=== PATIENT | female | born 1955 | race Caucasian/White ===

== ENCOUNTER 2023-10-03 09:41 | Day surgery (SDC) | payer MEDICARE, OTHER, SELFPAY ==
[2023-10-03 09:48] VITALS: BP 151/71; PULSE 60; RESP 16; TEMP 36.3; O2SAT 100
--- NOTE | 2023-10-03 10:20 | W.ANESPRE ---
General Info Date of Service Date Performed: 10/03/23 Height: 5 ft 2 in Weight: 60.781 kg Body Mass Index (BMI): 24.5 Surgical Procedure: Operation Date: 10/03/23 11:25 Proposed Procedure Side Surgeon p Cataract Extraction with IOL Implant Right Marvin Felix MD Meds Allergies and Home Medications Allergies Allergy/AdvReac Type Severity Reaction Status Date / Time amoxicillin Allergy Intermediate Skin Rash Unverified 10/03/23 10:04 azithromycin Allergy Intermediate Hives Unverified 10/03/23 10:04 iodine Allergy Intermediate Skin Rash Unverified 10/03/23 10:04 milk Allergy Intermediate Hives Unverified 10/03/23 10:04 oxycodone [From Percocet] Allergy Intermediate Skin Rash Unverified 10/03/23 10:04 Penicillins Allergy Intermediate Hives Unverified 10/03/23 10:04 ceftriaxone Allergy Mild Skin Rash Unverified 10/03/23 10:04 ciprofloxacin AdvReac Intermediate Other (See Unverified 10/03/23 10:04 Comment) doxycycline AdvReac Intermediate Skin Rash Unverified 10/03/23 10:04 Dizajph-FTB-LkK Reductase AdvReac Intermediate Cramps Unverified 10/03/23 10:04 Inhibitor mycins Allergy Intermediate Sores Uncoded 10/03/23 10:04 Home Medication Medication Instructions Recorded albuterol sulfate 90 mcg/actuation 2 inh inhalation Q4H 09/30/23 breath activated powder inhaler cholecalciferol (vitamin D3) 50 50 mcg PO DAILY 09/30/23 mcg (2,000 unit) capsule (D3-2000) gabapentin 100 mg capsule 500 mg PO TID 09/30/23 gemfibrozil 600 mg tablet 600 mg PO BID 09/30/23 hydrochlorothiazide 12.5 mg capsule 12.5 mg PO DIRECTED 09/30/23 levothyroxine 50 mcg tablet 50 mcg PO DAILY 09/30/23 (Levo-T) xsojcfgmrtgt-obvihbwf-pyxzuw 1 tab PO DAILY 09/30/23 tablet (A Thru Z High Potency tablet) peg 3350-electrolytes 236 240 ml PO Q10M 09/30/23 gram-22.74 gram-6.74 gram-5.86 gram solution (GaviLyte-G) tramadol 100 mg tablet 100 mg PO QHS 09/30/23 valacyclovir 1 gram tablet 1,000 mg PO BID 09/30/23 calcium carbonate 600 mg calcium 600 mg PO DAILY 10/01/23 (1,500 mg) tablet (Calcium) warfarin 5 mg tablet 5 mg PO DAILY 10/01/23 Current Visit Medications: Current Medications Generic Name Dose Route Start Last Admin Trade Name Xiangq PRN Reason Stop Dose Admin Balanced Salt Solution 500 ml 10/03/23 06:00 Balanced Salt Soln.-Plus 500 Ml Bag OP 11/02/23 05:59 DIRECTED CALIN Miscellaneous Medication 0 ml 10/03/23 06:00 Prednisolone 1%, Moxifloxacin 0.5%, Bromfenac 0.09% 5ml Btl OD 11/02/23 05:59 DIRECTED CALIN Miscellaneous Medication 0 ml 10/03/23 06:00 10/03/23 10:15 Tropicam./Phenyleph. (1/2.5%) 10 Ml Btl OD 11/02/23 05:59 1 drp DIRECTED CALIN Administration Tetracaine HCl 0 ml 10/03/23 06:00 Tetracaine 0.5% 4 Ml Btl OD 11/02/23 05:59 DIRECTED CALIN PFSH Active Problems Active Problems: Problem Status Onset Code Cortical age-related cataract, right eye H25.011 Nuclear age-related cataract, right eye H25.11 Medical History Medical History Hx of ventricular fibrillation Pt was asked various times if she was sure if this is what she had she stated yes states she does not have any trouble with it at all. She denies a defibrillator. Pt was instructed to clarify with PCP if she infact had vfib at one point in time. Pt was informed this is more serious arrthymia she should investigate as it is not indicated anywhere in her preoperative H&P Otitis externa Hx of deep venous thrombosis Chronic pain disorder Controlled substance agreement signed Lymphadenitis Hypothyroidism Neuralgia GERD (gastroesophageal reflux disease) Factor 5 Leiden mutation, heterozygous Pulmonary hypertension Osteoporosis Mitral valve regurgitation H/O cardiovascular stress test Osteoarthritis Thyroid nodule HSV (herpes simplex virus) infection Cervical lymphadenopathy Dyspepsia Surgical History Surgical History Hx of foot surgery Hx of hysterectomy 1993 Hx of elbow surgery Hx laparoscopic cholecystectomy Hx of colonoscopy History of esophagogastroduodenoscopy (EGD) History of lumbar surgery Status post phlebectomy Hx of vascular surgery May-Thurner procedure with stent Tobacco Smoking/Tobacco Use Status: Never Alcohol Alcohol Intake: former Substance Use Substance use: Never Substance use type: does not use Vital Signs and Lab Results Vital Signs Most Recent Vital Signs in EMR: Most Recent Vital Signs Temp Pulse Resp BP Pulse Ox 36.3 C L 60 16 151/71 H 100 10/03/23 09:48 10/03/23 09:48 10/03/23 09:48 10/03/23 09:48 10/03/23 09:48 Lab Results Blood Type / Crossmatch: No Data to Display Complete Blood Count: No Data to Display Complete Metabolic Panel: No Data to Display Liver Function Panel: No Data to Display Coagulation Panel: No Data to Display Cardiac Panel: No Data to Display Arterial Blood Gas: No Data to Display Venous Blood Gas: No Data to Display Pancreas Panel: No Data to Display Thyroid Panel: No Data to Display Infectious Disease: No Data to Display Blood Cultures: No Data to Display Toxicology Panel: No Data to Display Anesthesia Assessment and Plan Anesthesia History Personal History: No History of Anesthesia Complications Family History: No Family History of Anesthesia Complications Exercise Tolerance Exercise Tolerance: Metabolic Equivalents>4 Pertinent Negatives Pertinent Negatives: No Symptoms of GERD Cardiac & Pulmonary Exam Cardiac Exam: Normal S1/S2 Heart Sounds Pulmonary Exam: Clear Bilateral Breath Sounds Implantable Cardiac Device Does patient have a Pacemaker or an ICD?: No Airway Exam Known Difficult Airway: No Mallampati Class: 1 Mouth Opening: Normal (> 3cm) Thyromental Distance: Greater than 3 cm Neck Range of Motion: Full ROM Neck Circumference: Normal Teeth Condition: Normal Dentition ASA Classification ASA Score: ASA 3 Emergency Case?: No NPO Status NPO Status: NPO Clears >2 hours, Solids >8 hours Anesthesia Plan Resuscitation Status: Full Code Anesthesia Technique: MAC Anesthesia Airway Planned: Natural Airway Monitors Used: Standard Monitors
[2023-10-03 10:50] VITALS: BMI 24.5
[2023-10-03] MEDS: Tetracaine 0.5% 4 ML BTL OD (11:02)
[2023-10-03] MEDS: Balanced Salt Soln.-PLUS 500 ML BAG OP (11:10)
[2023-10-03] MEDS: Duovisc Viscoelastic System EACH 1 EACH (11:12)
[2023-10-03] MEDS: Lidocaine 1% Pres-Free 5 ML VIAL (11:12)
[2023-10-03] MEDS: Povidone-Iodine Ophth 30 ML BTL (11:13)
[2023-10-03 11:27] VITALS: BP 129/63; PULSE 52; RESP 16; TEMP 36.5; O2SAT 99
--- NOTE | 2023-10-03 11:31 | W.PM.DSUDISC ---
Date of service: 10/03/23 Time of Service: 11:31 Discharge Plan Disposition Patient Disposition: Home Discharge Details Attending Provider: Marvin Felix Primary Care Provider: Galina Vanegas Home Meds and New Rx's Prescriptions: No Action cholecalciferol (vitamin D3) [D3-2000] 50 mcg (2,000 unit) capsule 50 mcg PO DAILY A Thru Z High Potency Tablet 1 tab PO DAILY albuterol sulfate 90 mcg/actuation aerosol powdr breath activated 2 inh inhalation Q4H gemfibrozil 600 mg tablet 600 mg PO BID hydrochlorothiazide 12.5 mg capsule 12.5 mg PO DIRECTED levothyroxine [Levo-T] 50 mcg tablet 50 mcg PO DAILY tramadol 100 mg tablet 100 mg PO QHS valacyclovir 1 gram tablet 1,000 mg PO BID peg 3350-electrolytes [GaviLyte-G] 236-22.74-6.74 -5.86 gram recon soln 240 ml PO Q10M Rx Instructions: until fecal effluent is clear gabapentin 100 mg capsule 500 mg PO TID calcium carbonate [Calcium 600] 600 mg calcium (1,500 mg) tablet 600 mg PO DAILY warfarin 5 mg tablet 5 mg PO DAILY Discharge Instructions Stand Alone Forms: [facility] Leonela Mcgowan ([facility]) Discharge Orders Discharge Orders: Discharge Order (Routine); Ordered 10/03/23 Ordered By: Marivn Felix DS: Diagnosis Discharge Diagnosis (1) Cortical age-related cataract, right eye: Status: Resolved (2) Nuclear age-related cataract, right eye: Status: Resolved
--- NOTE | 2023-10-03 11:31 | W.PM.OP ---
Date of service: 10/03/23 Time of Service: 11:31 Operative Note Operative Note DATE OF PROCEDURE: 10/03/23 PRE-OP DIAGNOSIS: Nuclear/cortical cataract, right eye POST-OP DIAGNOSIS: same PROCEDURE: Cataract extraction using phacoemulsification with intraocular lens implant, right eye SURGEON: Marvin Felix ANESTHESIA TYPE: Local By Surgeon and MAC Refer to Anesthesia Record ESTIMATED BLOOD LOSS: 0 PATHOLOGY: none sent COMPLICATIONS: None Patient was transported to: same day Patient's condition: stable Implants: Song Clareon [id number] Indications: Progressive decreased vision due to cataract, right eye Procedure Description: CATARACT SURGERY OPERATIVE REPORT PREOPERATIVE DIAGNOSIS: Nuclear/cortical cataract, right eye POSTOPERATIVE DIAGNOSIS: Same OPERATION: Cataract extraction using phacoemulsification with posterior chamber intraocular lens implant, right eye. IOL: IOL Animal Assisted Therapist/Model: Song Clareon [id number] IOL Power: + 22.0 diopters IOL Serial Number: [id number] Optic Diameter: 6.0mm Haptic/Overall Diameter: 13.0mm PHACO INFO: Song SpreadShouturion Vision System with OZil and Active Fluidics Cumulative Dispersed Energy (CDE): 4.82 seconds SURGEON: Marvin Felix MD, JOSE ALBERTO ANESTHESIA: Monitored Anesthesia Care (MAC), with local sub-tenon's anesthetic infiltration COMPLICATIONS: None SPECIMENS: None INDICATIONS FOR PROCEDURE: The patient is a 68-year-old lady with history of diminished visual acuity in her right eye secondary to the development of nuclear/cortical cataract. She is significantly symptomatic that she desires cataract surgery and attempt to improve and maximize her vision. The option of cataract surgery was offered to the patient and she wished to proceed. See office notes for detailed information. PROCEDURE: The correct surgical eye was identified and marked as the right eye and the pupil was dilated in the preoperative area using mydriatics and cycloplegics. The dilated pupil size was 7.0 mm. Oral sedation was administered in the form of an Imprimis MKO Melt (midazolam 3mg/ketamine 25mg/ondansetron 2mg). The patient elected to proceed without oral sedation. The patient was brought to the operating room where cardiopulmonary monitoring was instituted and surgical time-out was performed, confirming the correct operative eye and IOL power. Topical anesthesia was administered and ophthalmic povidone-iodine 5% was instilled into the conjunctival fornices. The macarena-ocular area was prepped with Betadine 10% solution and draped in the usual sterile fashion for intraocular surgery, including an aperture drape. A Tegaderm transparent film dressing was cut in half and used to cover the lashes and lid margins. Care was taken to sequester the lashes and lid margins under the Tegaderm dressing. A lid speculum was placed between the lids of the operative eye and the Jeremiah-Janine operating microscope was maneuvered into position. Tosha scissors were then used to make a conjunctival buttonhole approximately 6mm posterior to the limbus in the inferonasal quadrant. Blunt dissection was carried out to expose bare sclera, and a blunt-tipped sub-tenon?s anesthesia cannula was introduced and passed posteriorly along the globe where non-preserved plain lidocaine was injected into posterior sub-Tenon?s space. A sideport knife was used to make a paracentesis port. Intraocular phenylephrine/lidocaine was injected into the anterior chamber. The anterior chamber was then filled with viscoelastic. A keratome knife was used to construct a two--plane clear corneal tunnel extending 2.0mm into clear cornea. A flap was raised on the anterior capsule and capsulorhexis forceps were used to complete a continuous curvilinear capsulorhexis of 5.5 mm. Balanced salt solution was then used to perform cortical cleaving hydrodissection and nuclear hydrodelineation until the lens could be freely rotated within the capsular bag. The lens nucleus was then disassembled and removed within the capsular bag and iris plane using phacoemulsification. Residual cortical material was removed using the I/A handpiece. The posterior capsule was carefully polished to remove as much residual lens epithelial cells as safely possible. The capsular bag was then inflated and the anterior chamber deepened with cohesive viscoelastic. The lens implant described above was inserted into the capsular bag using the Song Autonome Injector. A Kuglen hook was used to dial the IOL into position. Residual viscoelastic was then removed first from posterior to the IOL, then from the anterior chamber using the I/A handpiece. The lens implant was noted to center nicely within the capsular bag. The incisions were stromally hydrated, and the anterior chamber was reformed using BSS. Then 0.5cc of moxifloxacin 1.0mg/ml were injected into the capsular bag and anterior chamber. The incisions were checked with a Weck spear and found to be secure. Several drops of ophthalmic povidone-iodine 5% were then applied to the eye followed by two drops of combination steroid/NSAID/antibiotic solution. The drapes were removed and a clear plastic protective eye shield was placed over the eye. The patient was then returned to Same Day Surgery in stable condition.
--- NOTE | 2023-10-03 11:42 | W.ANESPOSTOP ---
Postoperative Evaluation Date, Time and Location Date Performed: 10/03/23 Time Performed: 11:42 Patient Location: Day Surgery Unit Vital Signs Most Recent Imported Vital Signs: Most Recent Vital Signs Temp Pulse Resp BP Pulse Ox 36.5 C 52 L 16 129/63 99 10/03/23 11:27 10/03/23 11:27 10/03/23 11:27 10/03/23 11:27 10/03/23 11:27 Pain Score Most Recent Pain Score: Most Recent Pain Score Pain Level 0 10/03/23 11:27 Assessment Mental Status: Awake (Alert & Oriented to Patient Baseline) Airway and Respiratory Function: Patent airway with normal (patient baseline) respiratory exam Cardiovascular Function: Hemodynamically Stable Hydration Status: Adequately Hydrated Nausea & Vomiting: No Nausea or Vomiting Pain: Pt. Denies Any Pain Peripheral Nerve Block: Patient did not receive a nerve block
[2023-10-03 11:52] VITALS: BP 110/67; PULSE 51; RESP 18; TEMP 36.6; O2SAT 96
== END 2023-10-03 12:02 | disposition home or self-care (01) ==
LOC: SUR 09:42
PROVIDERS: PCP Family Medicine; Visit Provider Ophthalmology
PROC: (CPT 66984; principal; 2023-10-03 11:15)
DX: H25.011 Cortical age-related cataract, right eye (principal); H25.11 Age-related nuclear cataract, right eye; K21.9 Gastro-esophageal reflux disease without esophagitis
CPT/HCPCS: 66984; 00123; V2632; J2003

== ENCOUNTER 2023-10-17 11:14 | Day surgery (SDC) | payer MEDICARE, OTHER, SELFPAY ==
[2023-10-17 11:23] VITALS: BP 153/71; PULSE 53; RESP 14; TEMP 36; O2SAT 99
--- NOTE | 2023-10-17 12:41 | W.ANESPRE ---
General Info Date of Service Date Performed: 10/17/23 Height: 5 ft 2 in Weight: 61.3 kg Body Mass Index (BMI): 24.7 Surgical Procedure: Operation Date: 10/17/23 12:55 Proposed Procedure Side Surgeon p Cataract Extraction with IOL Implant Left Marvin Felix MD Meds Allergies and Home Medications Allergies Allergy/AdvReac Type Severity Reaction Status Date / Time amoxicillin Allergy Intermediate Skin Rash Verified 10/17/23 11:39 azithromycin Allergy Intermediate Hives Verified 10/17/23 11:39 iodine Allergy Intermediate Skin Rash Verified 10/17/23 11:39 milk Allergy Intermediate Hives Verified 10/17/23 11:39 oxycodone [From Percocet] Allergy Intermediate Skin Rash Verified 10/17/23 11:39 Penicillins Allergy Intermediate Hives Verified 10/17/23 11:39 ceftriaxone Allergy Mild Skin Rash Verified 10/17/23 11:39 ciprofloxacin AdvReac Intermediate Other (See Verified 10/17/23 11:39 Comment) doxycycline AdvReac Intermediate Skin Rash Verified 10/17/23 11:39 Nehmvue-XHH-IuV Reductase AdvReac Intermediate Cramps Verified 10/17/23 11:39 Inhibitor mycins Allergy Intermediate Sores Uncoded 10/17/23 11:39 Home Medication Medication Instructions Recorded albuterol sulfate 90 mcg/actuation 2 inh inhalation Q4H 09/30/23 breath activated powder inhaler cholecalciferol (vitamin D3) 50 50 mcg PO DAILY 09/30/23 mcg (2,000 unit) capsule (D3-2000) gabapentin 100 mg capsule 500 mg PO TID 09/30/23 gemfibrozil 600 mg tablet 600 mg PO BID 09/30/23 hydrochlorothiazide 12.5 mg capsule 12.5 mg PO DIRECTED 09/30/23 levothyroxine 50 mcg tablet 50 mcg PO DAILY 09/30/23 (Levo-T) qyxlqzioouas-sdscprfw-iqtmin 1 tab PO DAILY 09/30/23 tablet (A Thru Z High Potency tablet) tramadol 100 mg tablet 100 mg PO QHS 09/30/23 valacyclovir 1 gram tablet 1,000 mg PO BID PRN 09/30/23 calcium carbonate 600 mg calcium 600 mg PO DAILY 10/01/23 (1,500 mg) tablet (Calcium) warfarin 5 mg tablet 5 mg PO DAILY 10/01/23 Current Visit Medications: Current Medications Generic Name Dose Route Start Last Admin Trade Name Freq PRN Reason Stop Dose Admin Acetaminophen 1,000 mg 10/17/23 06:00 Acetaminophen 500 Mg Tab PO 11/16/23 05:59 Q4H PRN PRN Balanced Salt Solution 500 ml 10/17/23 06:00 Balanced Salt Soln.-Plus 500 Ml Bag OP 11/16/23 05:59 DIRECTED CALIN Miscellaneous Medication 0 ml 10/17/23 06:00 Prednisolone 1%, Moxifloxacin 0.5%, Bromfenac 0.09% 5ml Btl OS 11/16/23 05:59 DIRECTED CALIN Miscellaneous Medication 0 ml 10/17/23 06:00 10/17/23 11:52 Tropicam./Phenyleph. (1/2.5%) 10 Ml Btl OS 11/16/23 05:59 1 drp DIRECTED CALIN Administration Tetracaine HCl 0 ml 10/17/23 06:00 Tetracaine 0.5% 4 Ml Btl OS 11/16/23 05:59 DIRECTED CALIN PFSH Active Problems Active Problems: Problem Status Onset Code Cortical age-related cataract, left eye H25.012 Nuclear age-related cataract, left eye H25.12 Cortical age-related cataract, right eye H25.011 Nuclear age-related cataract, right eye H25.11 Medical History Medical History Hx of ventricular fibrillation Pt was asked various times if she was sure if this is what she had she stated yes states she does not have any trouble with it at all. She denies a defibrillator. Pt was instructed to clarify with PCP if she infact had vfib at one point in time. Pt was informed this is more serious arrthymia she should investigate as it is not indicated anywhere in her preoperative H&P Otitis externa Hx of deep venous thrombosis Chronic pain disorder Controlled substance agreement signed Lymphadenitis Hypothyroidism Neuralgia GERD (gastroesophageal reflux disease) Factor 5 Leiden mutation, heterozygous Pulmonary hypertension Osteoporosis Mitral valve regurgitation H/O cardiovascular stress test Osteoarthritis Thyroid nodule HSV (herpes simplex virus) infection Cervical lymphadenopathy Dyspepsia Surgical History Surgical History Hx of foot surgery Hx of hysterectomy 1993 Hx of elbow surgery Hx laparoscopic cholecystectomy Hx of colonoscopy History of esophagogastroduodenoscopy (EGD) History of lumbar surgery Status post phlebectomy Hx of vascular surgery May-Thurner procedure with stent Tobacco Smoking/Tobacco Use Status: Never Alcohol Alcohol Intake: former Substance Use Substance use: Never Substance use type: does not use Vital Signs and Lab Results Vital Signs Most Recent Vital Signs in EMR: Most Recent Vital Signs Temp Pulse Resp BP Pulse Ox 36 C L 53 L 14 153/71 H 99 10/17/23 11:23 10/17/23 11:23 10/17/23 11:23 10/17/23 11:23 10/17/23 11:23 Lab Results Blood Type / Crossmatch: No Data to Display Complete Blood Count: No Data to Display Complete Metabolic Panel: No Data to Display Liver Function Panel: No Data to Display Coagulation Panel: No Data to Display Cardiac Panel: No Data to Display Arterial Blood Gas: No Data to Display Venous Blood Gas: No Data to Display Pancreas Panel: No Data to Display Thyroid Panel: No Data to Display Infectious Disease: No Data to Display Blood Cultures: No Data to Display Toxicology Panel: No Data to Display Anesthesia Assessment and Plan Anesthesia History Personal History: No History of Anesthesia Complications Family History: No Family History of Anesthesia Complications Exercise Tolerance Exercise Tolerance: Metabolic Equivalents>4 Pertinent Negatives Pertinent Negatives: No Symptoms of GERD Cardiac & Pulmonary Exam Cardiac Exam: Normal S1/S2 Heart Sounds Pulmonary Exam: Clear Bilateral Breath Sounds Implantable Cardiac Device Does patient have a Pacemaker or an ICD?: No Airway Exam Known Difficult Airway: No Mallampati Class: 1 Mouth Opening: Normal (> 3cm) Thyromental Distance: Greater than 3 cm Neck Range of Motion: Full ROM Neck Circumference: Normal Teeth Condition: Normal Dentition ASA Classification ASA Score: ASA 3 Emergency Case?: No NPO Status NPO Status: NPO Clears >2 hours, Solids >8 hours Anesthesia Plan Resuscitation Status: Full Code Anesthesia Technique: MAC Anesthesia Airway Planned: Natural Airway Monitors Used: Standard Monitors Preoperative Comments:: Wants. Mko as before
[2023-10-17 12:47] VITALS: BMI 24.7
--- NOTE | 2023-10-17 13:16 | W.ANESPRE ---
General Info Date of Service Date Performed: 10/17/23 Height: 5 ft 2 in Weight: 61.3 kg Body Mass Index (BMI): 24.7 Surgical Procedure: Operation Date: 10/17/23 12:55 Proposed Procedure Side Surgeon p Cataract Extraction with IOL Implant Left Marvin Felix MD Pre-Op Diagnosis Post-Op Diagnosis LEFT CATARACT LEFT CATARACT WITH IOL Meds Allergies and Home Medications Allergies Allergy/AdvReac Type Severity Reaction Status Date / Time amoxicillin Allergy Intermediate Skin Rash Verified 10/17/23 11:39 azithromycin Allergy Intermediate Hives Verified 10/17/23 11:39 iodine Allergy Intermediate Skin Rash Verified 10/17/23 11:39 milk Allergy Intermediate Hives Verified 10/17/23 11:39 oxycodone [From Percocet] Allergy Intermediate Skin Rash Verified 10/17/23 11:39 Penicillins Allergy Intermediate Hives Verified 10/17/23 11:39 ceftriaxone Allergy Mild Skin Rash Verified 10/17/23 11:39 ciprofloxacin AdvReac Intermediate Other (See Verified 10/17/23 11:39 Comment) doxycycline AdvReac Intermediate Skin Rash Verified 10/17/23 11:39 Faromho-JQB-VlK Reductase AdvReac Intermediate Cramps Verified 10/17/23 11:39 Inhibitor mycins Allergy Intermediate Sores Uncoded 10/17/23 11:39 Home Medication Medication Instructions Recorded albuterol sulfate 90 mcg/actuation 2 inh inhalation Q4H 09/30/23 breath activated powder inhaler cholecalciferol (vitamin D3) 50 50 mcg PO DAILY 09/30/23 mcg (2,000 unit) capsule (D3-2000) gabapentin 100 mg capsule 500 mg PO TID 09/30/23 gemfibrozil 600 mg tablet 600 mg PO BID 09/30/23 hydrochlorothiazide 12.5 mg capsule 12.5 mg PO DIRECTED 09/30/23 levothyroxine 50 mcg tablet 50 mcg PO DAILY 09/30/23 (Levo-T) hictjxemgije-htbirjxs-fmdqdz 1 tab PO DAILY 09/30/23 tablet (A Thru Z High Potency tablet) tramadol 100 mg tablet 100 mg PO QHS 09/30/23 valacyclovir 1 gram tablet 1,000 mg PO BID PRN 09/30/23 calcium carbonate 600 mg calcium 600 mg PO DAILY 10/01/23 (1,500 mg) tablet (Calcium) warfarin 5 mg tablet 5 mg PO DAILY 10/01/23 Current Visit Medications: Current Medications Generic Name Dose Route Start Last Admin Trade Name Suzanne PRN Reason Stop Dose Admin Acetaminophen 1,000 mg 10/17/23 06:00 Acetaminophen 500 Mg Tab PO 11/16/23 05:59 Q4H PRN PRN Balanced Salt Solution 500 ml 10/17/23 06:00 Balanced Salt Soln.-Plus 500 Ml Bag OP 11/16/23 05:59 DIRECTED CALNI Miscellaneous Medication 0 ml 10/17/23 06:00 Prednisolone 1%, Moxifloxacin 0.5%, Bromfenac 0.09% 5ml Btl OS 11/16/23 05:59 DIRECTED CALIN Miscellaneous Medication 0 ml 10/17/23 06:00 10/17/23 11:52 Tropicam./Phenyleph. (1/2.5%) 10 Ml Btl OS 11/16/23 05:59 1 drp DIRECTED CALIN Administration Tetracaine HCl 0 ml 10/17/23 06:00 Tetracaine 0.5% 4 Ml Btl OS 11/16/23 05:59 DIRECTED CALIN PFSH Active Problems Active Problems: Problem Status Onset Code Cortical age-related cataract, left eye H25.012 Nuclear age-related cataract, left eye H25.12 Cortical age-related cataract, right eye H25.011 Nuclear age-related cataract, right eye H25.11 Medical History Medical History Hx of ventricular fibrillation Pt was asked various times if she was sure if this is what she had she stated yes states she does not have any trouble with it at all. She denies a defibrillator. Pt was instructed to clarify with PCP if she infact had vfib at one point in time. Pt was informed this is more serious arrthymia she should investigate as it is not indicated anywhere in her preoperative H&P Otitis externa Hx of deep venous thrombosis Chronic pain disorder Controlled substance agreement signed Lymphadenitis Hypothyroidism Neuralgia GERD (gastroesophageal reflux disease) Factor 5 Leiden mutation, heterozygous Pulmonary hypertension Osteoporosis Mitral valve regurgitation H/O cardiovascular stress test Osteoarthritis Thyroid nodule HSV (herpes simplex virus) infection Cervical lymphadenopathy Dyspepsia Medical History Comments:: Pt state was incorrect about v fib Surgical History Surgical History Hx of foot surgery Hx of hysterectomy 1993 Hx of elbow surgery Hx laparoscopic cholecystectomy Hx of colonoscopy History of esophagogastroduodenoscopy (EGD) History of lumbar surgery Status post phlebectomy Hx of vascular surgery May-Thurner procedure with stent Tobacco Smoking/Tobacco Use Status: Never Alcohol Alcohol Intake: former Substance Use Substance use: Never Substance use type: does not use Vital Signs and Lab Results Vital Signs Most Recent Vital Signs in EMR: Most Recent Vital Signs Temp Pulse Resp BP Pulse Ox 36 C L 53 L 14 153/71 H 99 10/17/23 11:23 10/17/23 11:23 10/17/23 11:23 10/17/23 11:23 10/17/23 11:23 Lab Results Blood Type / Crossmatch: No Data to Display Complete Blood Count: No Data to Display Complete Metabolic Panel: No Data to Display Liver Function Panel: No Data to Display Coagulation Panel: No Data to Display Cardiac Panel: No Data to Display Arterial Blood Gas: No Data to Display Venous Blood Gas: No Data to Display Pancreas Panel: No Data to Display Thyroid Panel: No Data to Display Infectious Disease: No Data to Display Blood Cultures: No Data to Display Toxicology Panel: No Data to Display Anesthesia Assessment and Plan Anesthesia History Personal History: No History of Anesthesia Complications Family History: No Family History of Anesthesia Complications Exercise Tolerance Exercise Tolerance: Metabolic Equivalents>4 Cardiac & Pulmonary Exam Cardiac Exam: Normal S1/S2 Heart Sounds Pulmonary Exam: Clear Bilateral Breath Sounds Implantable Cardiac Device Does patient have a Pacemaker or an ICD?: No Airway Exam Known Difficult Airway: No Mallampati Class: 1 Mouth Opening: Normal (> 3cm) Thyromental Distance: Greater than 3 cm Neck Range of Motion: Full ROM Neck Circumference: Normal Teeth Condition: Normal Dentition ASA Classification ASA Score: ASA 3 Emergency Case?: No NPO Status NPO Status: NPO Clears >2 hours, Solids >8 hours Anesthesia Plan Resuscitation Status: Full Code Anesthesia Technique: MAC Anesthesia Airway Planned: Natural Airway Pain Management: Surgeon and patient request nerve block Monitors Used: Standard Monitors Preoperative Comments:: Tarsha de la cruz
[2023-10-17 13:19] VITALS: BMI 24.7
[2023-10-17] MEDS: Balanced Salt Soln.-PLUS 500 ML BAG OP (13:35)
[2023-10-17] MEDS: Tetracaine 0.5% 4 ML BTL OS (13:35)
[2023-10-17] MEDS: Lidocaine 1% Pres-Free 5 ML VIAL (13:36)
[2023-10-17] MEDS: Povidone-Iodine Ophth 30 ML BTL (13:38)
[2023-10-17] MEDS: Duovisc Viscoelastic System EACH 1 EACH (13:38)
[2023-10-17 13:50] VITALS: BP 134/62; PULSE 55; RESP 16; TEMP 36.6; O2SAT 100
--- NOTE | 2023-10-17 13:51 | W.PM.DSUDISC ---
Date of service: 10/17/23 Time of Service: 13:52 Discharge Plan Disposition Patient Disposition: Home Discharge Details Attending Provider: Marvin Felix Primary Care Provider: Galina Vanegas Home Meds and New Rx's Prescriptions: No Action cholecalciferol (vitamin D3) [D3-2000] 50 mcg (2,000 unit) capsule 50 mcg PO DAILY A Thru Z High Potency Tablet 1 tab PO DAILY albuterol sulfate 90 mcg/actuation aerosol powdr breath activated 2 inh inhalation Q4H gemfibrozil 600 mg tablet 600 mg PO BID hydrochlorothiazide 12.5 mg capsule 12.5 mg PO DIRECTED levothyroxine [Levo-T] 50 mcg tablet 50 mcg PO DAILY tramadol 100 mg tablet 100 mg PO QHS valacyclovir 1 gram tablet 1,000 mg PO BID PRN gabapentin 100 mg capsule 500 mg PO TID calcium carbonate [Calcium 600] 600 mg calcium (1,500 mg) tablet 600 mg PO DAILY warfarin 5 mg tablet 5 mg PO DAILY Discharge Instructions Stand Alone Forms: [facility] Post-Op Cataract, Leonela Chiang ([facility]) Discharge Orders Discharge Orders: Discharge Order (Routine); Ordered 10/17/23 Ordered By: Marvin Felix
--- NOTE | 2023-10-17 13:54 | ROE_ITS ---
Date of service: 10/17/23 Time of Service: 13:57 Operative Note Operative Note DATE OF PROCEDURE: 10/17/23 PRE-OP DIAGNOSIS: Nuclear/cortical cataract, left eye POST-OP DIAGNOSIS: same PROCEDURE: Cataract extraction using phacoemulsification with intraocular lens implant, left eye SURGEON: Marvin Felix ANESTHESIA TYPE: Local By Surgeon and MAC Refer to Anesthesia Record PATHOLOGY: none sent COMPLICATIONS: None Patient was transported to: same day Patient's condition: stable Implants: Song [employer] [id number] Indications: Progressive decreased vision due to cataract, left eye Procedure Description: CATARACT SURGERY OPERATIVE REPORT PREOPERATIVE DIAGNOSIS: Nuclear/cortical cataract, left eye POSTOPERATIVE DIAGNOSIS: Same OPERATION: Cataract extraction using phacoemulsification with posterior chamber intraocular lens implant, left eye. IOL: IOL Director Of Retail Analytics/Model: Song [employer]on [id number] IOL Power: + 22.0 diopters IOL Serial Number: [id number] Optic Diameter: 6.0mm Haptic/Overall Diameter: 13.0mm PHACO INFO: [employer] Vision System with OZil and Active Fluidics Cumulative Dispersed Energy (CDE): 6.10 seconds SURGEON: Marvin Felix MD, JOSE ALBERTO ANESTHESIA: Monitored Anesthesia Care (MAC), with local sub-tenon's anesthetic infiltration COMPLICATIONS: None SPECIMENS: None INDICATIONS FOR PROCEDURE: The patient is a 68-year-old lady with history of diminished visual acuity in both eyes secondary to the development of bilateral nuclear/cortical cataract. She has already undergone cataract surgery in the right eye and is doing well postoperatively. She now presents for cataract surgery left eye. See office notes for detailed information. PROCEDURE: The correct surgical eye was identified and marked as the left eye and the pupil was dilated in the preoperative area using mydriatics and cycloplegics. The dilated pupil size was 7.0 mm. Oral sedation was administered in the form of an Imprimis MKO Melt (midazolam 3mg/ketamine 25mg/ondansetron 2mg). The patient was brought to the operating room where cardiopulmonary monitoring was instituted and surgical time-out was performed, confirming the correct operative eye and IOL power. Topical anesthesia was administered and ophthalmic povidone-iodine 5% was instilled into the conjunctival fornices. The macarena-ocular area was prepped with Betadine 10% solution and draped in the usual sterile fashion for intraocular surgery, including an aperture drape. A Tegaderm transparent film dressing was cut in half and used to cover the lashes and lid margins. Care was taken to sequester the lashes and lid margins under the Tegaderm dressing. A lid speculum was placed between the lids of the operative eye and the Song Lux[employer] Revalia operating microscope was maneuvered into position. Tosha scissors were then used to make a conjunctival buttonhole approximately 6mm posterior to the limbus in the inferonasal quadrant. Blunt dissection was carried out to expose bare sclera, and a blunt-tipped sub-tenon?s anesthesia can nula was introduced and passed posteriorly along the globe where non-preserved plain lidocaine was injected into posterior sub-Tenon?s space. A sideport knife was used to make a paracentesis port. Intraocular phenylephrine/lidocaine was injected into the anterior chamber. The anterior chamber was then filled with viscoelastic. A keratome knife was used construct a two-plane clear corneal tunnel extending 2.0mm into clear cornea. A flap was raised on the anterior capsule and capsulorhexis forceps were used to complete a continuous curvilinear capsulorhexis of 5.0 mm. Balanced salt solution was then used to perform cortical cleaving hydrodissection and nuclear hydrodelineation until the lens could be freely rotated within the capsular bag. The lens nucleus was then disassembled and re moved within the capsular bag and iris plane using phacoemulsification. Residual cortical material was removed using the irrigation/aspiration handpiece. The posterior capsule was carefully polished to remove as much residual lens epithelial cells as safely possible. The capsular bag was then inflated and the anterior chamber deepened with viscoelastic. The lens implant described above was inserted into the capsular bag using the Song Autonome Injector. A Kuglen hook was used to dial the IOL into position. Residual viscoelastic was then removed first from posterior to the IOL, then from the anterior chamber using the I/A handpiece. The lens implant was noted to center nicely within the capsular bag. The incisions were stromally hydrated, and the anterior chamber was reformed using BSS. Then 0.5cc of moxifloxacin 1.0mg/ml were injected into the capsular bag and anterior chamber. The incisions were checked with a Weck spear and found to be secure. Several drops of ophthalmic povidone-iodine 5% were then applied to the eye followed by two drops of combination steroid/NSAID/antibiotic solution. The drapes were removed and a clear plastic protective eye shield was placed over the eye. The patient was then returned to [facility] Day Surgery in stable condition.
--- NOTE | 2023-10-17 14:15 | W.ANESPOSTOP ---
Postoperative Evaluation Date, Time and Location Date Performed: 10/17/23 Time Performed: 14:15 Patient Location: Day Surgery Unit Vital Signs Most Recent Imported Vital Signs: Most Recent Vital Signs Temp Pulse Resp BP Pulse Ox 36.6 C 55 L 16 134/62 100 10/17/23 13:50 10/17/23 13:50 10/17/23 13:50 10/17/23 13:50 10/17/23 13:50 Pain Score Most Recent Pain Score: Most Recent Pain Score Pain Level 0 10/17/23 13:50 Assessment Mental Status: Awake (Alert & Oriented to Patient Baseline) Airway and Respiratory Function: Patent airway with normal (patient baseline) respiratory exam Cardiovascular Function: Hemodynamically Stable Hydration Status: Adequately Hydrated Nausea & Vomiting: No Nausea or Vomiting Pain: Pt. Denies Any Pain Peripheral Nerve Block: Patient did not receive a nerve block
[2023-10-17 14:25] VITALS: BP 124/82; PULSE 54; RESP 18; TEMP 36.6; O2SAT 99
== END 2023-10-17 14:32 | disposition home or self-care (01) ==
LOC: SUR 11:14
PROVIDERS: PCP Family Medicine; Visit Provider Ophthalmology
PROC: (CPT 66984; principal; 2023-10-17 12:45)
DX: H25.012 Cortical age-related cataract, left eye (principal); H25.12 Age-related nuclear cataract, left eye; K21.9 Gastro-esophageal reflux disease without esophagitis; Z98.41 Cataract extraction status, right eye
CPT/HCPCS: 66984; 00123; V2632; J2003